=== PATIENT | female | born 2000 | race Hispanic/Latino ===

== ENCOUNTER 2025-03-30 23:49 | Emergency (ER) | payer OTHER ==
[~2025-03-30] VITALS: Ht 162.6 cm; Wt 75.7 kg
--- NOTE | 2025-03-30 23:52 | NUR ---
UA CUP PROVIDED
--- NOTE | 2025-03-30 23:57 | NUR ---
UA COLLECTED AND SENT
[2025-03-31 00:10] LABS: APPEARANCE,URINE CLEAR (CLEAR); GLUCOSE, URINE (UA) NEGATIVE (NEGATIVE); LEUKOCYTE ESTERASE ,URINE 25 Leu/uL (NEGATIVE); NITRATE,URINE NEGATIVE (NEGATIVE); OCCULT BLOOD,URINE NEGATIVE (NEGATIVE)
[2025-03-31 00:11] LABS: ADD UA MICROSCOPIC YES
[2025-03-31 00:13] LABS: HCG,QUALITATIVE URINE NEGATIVE (NEGATIVE); SQUAMOUS EPITHELIAL CELL,UR RARE /HPF (0-2)
[2025-03-31 00:48] LABS: IMMATURE GRANULOCYTE ABSOLUTE 0.03 K/uL (0-1); NUCLEATED RED BLOOD CELLS 0.0 % (0.0-0.19); PLATELET COUNT (AUTO) 232 K/uL (130-400); RED BLOOD CELL COUNT(AUTO) 4.90 MIL/uL (4.00-5.50); RED CELL DISTRIBUTION WIDTH 13.5 % (11.0-15.5); WHITE BLOOD COUNT (AUTO) 9.0 K/uL (4.8-10.8)
[2025-03-31 00:56] LABS: CREATININE 0.8 mg/dL (0.5-1.0); GLOMERULAR FILTR. RATE CALC 104.0 mL/min (>90); GLUCOSE,RANDOM 115.0 mg/dL (70-105); SODIUM SERUM 135.0 mmol/L (136-145); UREA NITROGEN, BLOOD 12.0 mg/dL (7-18)
[2025-03-31] MEDS ORDERED: IOHEXOL-350 75 ML VIAL IV ONE (01:10)
--- NOTE | 2025-03-31 02:16 | ERN ---
General Chief Complaint: Abdominal Pain Stated Complaint: ABD PAIN, GROIN Time Seen by MD: 00:04 Time Seen by Midlevel: 00:04 Source: patient History of Present Illness Initial Comments Patient is a 24-year-old female with no significant past medical history presenting to the emergency department with a right lower quadrant abdominal pain that has been ongoing for one week. She denies any urinary symptoms, nausea, vomiting, diarrhea, fever, or any other symptoms at this time. Allergies: Coded Allergies: No Known Allergies (Unverified Allergy, Unknown, 03/30/25) Past Medical History Past Medical History: No Pertinent History Past Surgical History: Female( History) LMP: Mar 08, 2025 : 1 Para: 1 ROS Dictation CONSTITUTIONAL: Negative except for HPI HEAD/FACE: Negative except for HPI EENT: Negative except for HPI RESPIRATORY: Negative except for HPI GASTROINTESTINAL/ABDOMINAL: Negative except for HPI GENITOURINARY: Negative except for HPI MUSCULOSKELETAL: Negative except for HPI INTEGUMENTARY: Negative except for HPI NEUROLOGICAL/PSYCH: Negative except for HPI HEMATOLOGIC/LYMPHATIC: Negative except for HPI All Systems Negative, Except as noted above. 13 point review of systems assessed and all negative except for above. Physical Exam Physical Exam Dictation Vital Signs reviewed General Appearance: Alert, oriented x 3, no acute distress, well developed, nourished. Head and Face: non-traumatic. Eyes: PERRL, pink conjunctivas, eyelid no trauma, anterior chamber with arcus senilis. Ears: Pinnas intact and no signs of trauma or erythema ear canals clear and no discharge TM no erythema Nose: No discharge, no bleeding. Oropharynx: Mouth normal, tongue pink, pharynx clear,no erythema, tonsils no exudates, no abscesses noted, mucous membrane moist Neck: Supple, non-tender, no thyromegaly, no masses, no JVD, no bruits Breast:Deferred Chest:No tenderness, no crepitus, no paradoxical movement, no retractions Lungs:Clear, well-ventilated, symmetric, no rales, no wheezing, no rhonchi, no stridor, good breath sounds bilaterally Heart: Regular rate, regular rhythm, no murmur, no gallops Vascular: no peripheral edema, Abdomen: Soft, positive bowel sounds, nondistended, no guarding, Right lower quadrant abdominal tenderness, no rebound, no masses no hepatomegaly, no splenomegaly, no Saldaña's sign, no hernias. Rectal: Deferred Genital: Deferred Neurological: Normal speech, motor function intact, sensory function intact Musculoskeletal: Neck nontender, full range of motion, back nontender, full range of motion, Extremities: nontender, full range of motion Skin: Color pink, dry, no turgor, no rash, no lacerations, no abrasions, no contusions. Lymphatic: Deferred Results Laboratory and Microbiology Lab and Micro Result Laboratory Tests Test 03/30/25 23:57 03/31/25 00:41 Urine Color LIGHT-YELLOW (YELLOW) Urine Appearance CLEAR (CLEAR) Urine pH 6.5 (5.0-8.0) Urine Specific [place] 1.017 (1.001-1.031) Urine Protein NEGATIVE mg/dL (NEGATIVE) Urine Glucose (UA) NEGATIVE mg/dL (NEGATIVE) Urine Ketones NEGATIVE mg/dL (NEGATIVE) Urine Occult Blood NEGATIVE (NEGATIVE) Urine Nitrate NEGATIVE (NEGATIVE) Urine Bilirubin NEGATIVE mg/dL (NEGATIVE) Urine Urobilinogen 0.2 mg/dL (0.2-1.0) Urine Leukocyte Esterase 25 Verna/uL (NEGATIVE) H Urine RBC 2-5 /HPF (0-1) H Urine WBC 2-5 /HPF (0-1) H Urine Squamous Epithelial Cells RARE /HPF (0-2) Urine Bacteria FEW /HPF (None Seen) Urine HCG, Qualitative NEGATIVE (NEGATIVE) White Blood Count 9.0 K/uL (4.8-10.8) Red Blood Count 4.90 MIL/uL (4.00-5.50) Hemoglobin 13.7 g/dL (12.0-16.0) Hematocrit 41.4 % (36-48) Mean Corpuscular Volume 84.5 fL (79-99) Mean Corpuscular Hemoglobin 28.0 pg (27.0-33.0) Mean Corpuscular Hemoglobin Concent 33.1 g/dL (32.0-36.0) Red Cell Distribution Width 13.5 % (11.0-15.5) Platelet Count 232 K/uL (130-400) Mean Platelet Volume 11.5 fL (7.5-10.5) H Immature Granulocyte % (Auto) 0.3 % (0-1) Neutrophils (%) (Auto) 46.9 % (40.0-77.0) Lymphocytes (%) (Auto) 44.7 % (21.0-51.0) Monocytes (%) (Auto) 6.0 % (3.0-13.0) Eosinophils (%) (Auto) 1.7 % (0.0-8.0) Basophils (%) (Auto) 0.4 % (0.0-5.0) Neutrophils # (Auto) 4.2 K/uL (1.8-7.7) Lymphocytes # (Auto) 4.0 K/uL (1.0-4.8) Monocytes # (Auto) 0.5 K/uL (0.1-1.0) Eosinophils # (Auto) 0.15 K/uL (0.00-0.70) Basophils # (Auto) 0.04 K/uL (0.00-0.20) Absolute Immature Granulocyte (auto 0.03 K/uL (0-1) Nucleated Red Blood Cells 0.0 % (0.0-0.19) Sodium Level 135 mmol/L (136-145) L Potassium Level 3.5 mmol/L (3.5-5.1) Chloride Level 98 mmol/L (101-111) L Carbon Dioxide Level 29 mmol/L (21-32) Blood Urea Nitrogen 12 mg/dL (7-18) Creatinine 0.8 mg/dL (0.5-1.0) Glomerular Filtration Rate Calc 104 mL/min (>90) Random Glucose 115 mg/dL (70-105) H Total Calcium 8.7 mg/dL (8.5-10.1) Serum Test, Qualitative NEGATIVE (NEGATIVE) Labs Reviewed?: Yes EKG/XRAY/US/CT/MRI CT Scan Comment EXAM: CT Abdomen and Pelvis with IV contrast CLINICAL HISTORY: Right lower quadrant abdominal pain. Rule out acute appendicitis. TECHNIQUE: Postcontrast thin collimated axial CT images of the abdomen and pelvis were obtained with sagittal and coronal reformatted images also submitted. CT scan is done according to ALARA (As Low As Reasonably Achievable). COMPARISON: None. FINDINGS: The included lungs are clear. No focal abnormality within the liver, gallbladder, pancreas, spleen, or adrenals. 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 Unremarkable urinary bladder. There is a 2 cm corpus luteal cyst in the right ovary. Unremarkable uterus and left ovary. There is no obvious bowel wall thickening. Bowel loops are normal in caliber without evidence of obstruction or ileus. The appendix is normal. Grossly unremarkable abdominal vessels. No pathological lymphadenopathy in the abdomen or pelvis. No ascites or pneumoperitoneum. There is no acute osseous abnormality. IMPRESSIONS: No acute process in the abdomen or pelvis. Unremarkable appendix. Right ovarian corpus luteal cyst. Correlation with the patient's menstrual history is recommended. Incidental horseshoe kidneys. MDM MDM: DIFFERENTIAL DIAGNOSIS: Abdominal pain, luteal cyst RATIONALE: TESTS CONSIDERED AND ORDERED SECONDARY TO SHARED DECISION MAKING INCLUDE: PREVIOUS OUTSIDE RECORDS REVIEWED: OLD ER VISITS. RISK OF COMPLICATION AND/OR MORBIDITY OR MORTALITY OF PATIENT MANAGEMENT: NONE MEDICATIONS-PER MEDICATION RECONCILIATION NEED FOR HOSPITALIZATION: PATIENT DOES NOT MEET CRITERIA FOR HOSPITALIZATION. NEED FOR EMERGENCY MAJOR/MINOR SURGERY: NO THERE ARE NO SOCIAL CONCERNS WITH THIS PATIENT. PRESCRIPTION DRUG MANAGEMENT PRESCRIPTIONS WILL INCLUDE SYMPTOMATIC CARE PATIENT'S PRIOR EXTERNAL MEDICAL RECORDS FROM OTHER ER VISITS WERE REVIEWED BY ME INDICATED. PRIOR TESTING AND RESULTS FROM PREVIOUS VISITS WERE REVIEWED. PRIOR TESTS WERE TAKEN INTO ACCOUNT WITH MEDICAL DECISION MAKING AND RESOURCE UTILIZATION, INDEPENDENT HISTORIAN/HISTORIANS WERE USED TO OBTAIN COMPLETE MEDICAL HISTORY. I INDEPENDENTLY INTERPRETED THE TEST THAT WERE PERFORMED, RESULTS WERE REVIEWED BY ME AND CONSIDERED FINDINGS ON RADIOLOGY IF ORDERED. MEDICAL MANAGEMENT AND EXAMINATION INTERPRETATION DISCUSSIONS WERE HAD BY ME WITH OTHER QUALIFIED HEALTHCARE PROFESSIONALS INDICATED FOR THE PATIENT'S CARE. ED Course Orders Procedure Category Date Status Time Urinalysis Profile LAB 03/30/25 Complete 23:55 ,Urine Test LAB 03/30/25 Complete 23:55 Cbc With Differential LAB 03/31/25 Complete 00:10 Basic Metabolic Panel LAB 03/31/25 Complete 00:10 Testing, LAB 03/31/25 Complete Serum Hcg 00:10 Us Pelvic Non-Ob US 03/31/25 Resulted Limited 00:10 Ct Abdomen/Pelvis CT 03/31/25 Resulted W/Contrast 00:10 Iohexol (Omnipaque) PHA 03/31/25 Complete 01:10 Current Medications Medications (Trade) Dose Ordered Sig/Jared Route PRN Reason Start Time Stop Time Status Last Admin Dose Admin Iohexol (Omnipaque) 75 ml STK-MED ONCE IV 03/31/25 01:10 03/31/25 01:11 DC Vital Signs Date Time Temp Pulse Resp B/P (MAP) Pulse Ox O2 Delivery O2 Flow Rate FiO2 03/31/25 00:03 97.9 76 18 123/72 100 Room Air* 0 21 03/30/25 23:51 97.2 80 16 140/78 100 Room Air Labs and imaging reassuring at this time. Patient noted to have a right cystic luteal cyst. Likely secondary to menses. We will discharge home at this time. Advised on concerning signs and symptoms for which to return to the emergency room. All labs and imaging reviewed with the patient patient amenable to discharge home. DX & DISP Disposition: Discharge Departure Impression: Primary Impression: Ovarian cyst Additional Impression: Abdominal pain Condition: Stable Referrals: SELF,REFERRAL (PCP) TRISHA ESTRELLA Mar 31, 2025 02:16 JULIO C CHAVIRA MD Mar 31, 2025 03:14
--- NOTE | 2025-03-31 02:19 | HMCIMG ---
EXAM: US Pelvis, Complete. CLINICAL HISTORY: Rule out right ovarian torsion. TECHNIQUE: Transvaginal and transabdominal pelvic ultrasound (complete) with image documentation. COMPARISON: None provided. FINDINGS: ENDOMETRIUM: Normal thickness. 1.3 cm. UTERUS/CERVIX: The uterus appears within normal limits. No uterine fibroid or other mass evident. 9.0 x 4.0 x 6.2 cm. RIGHT OVARY: There appears to be normal Doppler flow on transabdominal images. No abnormal mass. Multiple small follicles. Right ovary measures 2.7 x 1.5 x 2.2 cm. LEFT OVARY: There appears to be normal Doppler flow on transabdominal images. No abnormal mass. Multiple small follicles. Left ovary measures 3.6 x 1.8 x 1.9 cm. FREE FLUID: No free fluid. IMPRESSION: Negative examination. No acute process or ovarian torsion is evident. /Melvin
--- NOTE | 2025-03-31 03:03 | HMCIMG ---
EXAM: CT Abdomen and Pelvis with IV contrast CLINICAL HISTORY: Right lower quadrant abdominal pain. Rule out acute appendicitis. TECHNIQUE: Postcontrast thin collimated axial CT images of the abdomen and pelvis were obtained with sagittal and coronal reformatted images also submitted. CT scan is done according to ALARA (As Low As Reasonably Achievable). COMPARISON: None. FINDINGS: The included lungs are clear. No focal abnormality within the liver, gallbladder, pancreas, spleen, or adrenals. 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 Unremarkable urinary bladder. There is a 2 cm corpus luteal cyst in the right ovary. Unremarkable uterus and left ovary. There is no obvious bowel wall thickening. Bowel loops are normal in caliber without evidence of obstruction or ileus. The appendix is normal. Grossly unremarkable abdominal vessels. No pathological lymphadenopathy in the abdomen or pelvis. No ascites or pneumoperitoneum. There is no acute osseous abnormality. IMPRESSIONS: No acute process in the abdomen or pelvis. Unremarkable appendix. Right ovarian corpus luteal cyst. Correlation with the patient's menstrual history is recommended. Incidental horseshoe kidneys. /Melvin
[2025-03-31 03:23] VITALS: BP 110/68; PULSE 72; RESP 16; TEMP 98.2; O2SAT 100
== END 2025-03-31 03:24 | disposition home or self-care (01) ==
LOC: EDH 23:49
DX: N83.11 Corpus luteum cyst of right ovary (principal)
CPT/HCPCS: 99285; 80048; 84703; 85025; 81001; 81025; 36415; 74177; 76857; Q9967